=== PATIENT | female | born 2000 | race Caucasian/White ===

== ENCOUNTER → 2024-08-24 16:26 | Outpatient (REF) | payer BC, SELFPAY ==
[2024-08-24 17:10] LABS: Hematocrit 36.4 % (37.0-47.0); Hemoglobin 12.4 g/dL (12.0-16.0); Mean Corp Hgb Conc. 34.1 g/dL (33.0-37.0); Mean Corpuscular Hgb 30.8 pg (27.0-31.0); Mean Corpuscular Volume 90.5 fL (81.0-99.0); Mean Platelet Volume 11.1 fL (7.4-10.4); Platelet Count 206 10^3/uL (130-400); Red Blood Cell Count 4.02 10^6/uL (4.20-5.40); Red Cell Dist. Width 12.3 % (11.5-14.5)
[2024-08-24 17:33] LABS: ALT (SGPT) 16 U/L (0-35); AST (SGOT) 18 U/L (14-36); Albumin 4.6 g/dl (3.5-5.0); Alkaline Phosphatase 42 U/L (38-126); Blood Urea Nitrogen 10 mg/dl (7-17); Calcium 8.9 mg/dl (8.4-10.2); Carbon Dioxide 24 mmol/L (22-30); Chloride 111 mmol/L (98-107); Glucose 120 mg/dl (70-99); HDL Cholesterol 61 mg/dl; Iron 92 ug/dl (37-170); LDL Cholesterol, Calculated 108 mg/dl; Sodium 143 mmol/L (135-145); Total Bilirubin 0.3 mg/dl (0.2-1.3); Total Cholesterol 191 mg/dl (50-199); Total Protein 7.5 g/dl (6.3-8.2); Triglyceride 114 mg/dl (10-149); Very Low Density Lipoprotein 22 mg/dl (0-30); eGFR > 60.00
[2024-08-24 18:03] LABS: TSH 3.02 uIU/ml (0.47-4.68)
[2024-08-26 18:36] LABS: Lipoprotein a (Lp a) <6 mg/dL (<=29)
[2024-08-26 18:55] LABS: Apolipoprotein B 97 mg/dL (60-117)
== END ==
LOC: REG 16:26
PROVIDERS: ATTENDING PHYSICIAN Specialist
DX: Z00.00 Encounter for general adult medical examination without abnormal findings (principal); E78.01 Familial hypercholesterolemia; D50.9 Iron deficiency anemia, unspecified; E06.3 Autoimmune thyroiditis
CPT/HCPCS: 36415; 80053; 80061; 82172; 83540; 83695; 84443; 85027

== ENCOUNTER → 2025-02-11 13:14 | Outpatient (REF) | payer BC, SELFPAY ==
[2025-02-11 15:03] LABS: C-Reactive Protein 25.80 mg/L (0.0-10.00)
[2025-02-11 15:23] LABS: Beta HCG Quantitative < 2.39 mIU/ml
[2025-02-11 15:38] LABS: Ferritin 51.1 ng/ml (6.24-137)
[2025-02-11 16:09] LABS: Folate 8.0 ng/ml (2.76-20); Vitamin B12 311 pg/ml (239-931)
== END ==
LOC: REG 13:14
PROVIDERS: ATTENDING PHYSICIAN Psychiatry & Neurology Neurology
DX: G43.709 Chronic migraine without aura, not intractable, without status migrainosus (principal); R79.0 Abnormal level of blood mineral
CPT/HCPCS: 36415; 82607; 82728; 82746; 84443; 84702; 85652; 86140